=== PATIENT | male | born 1945 | race Caucasian/White ===

== ENCOUNTER → 2017-01-31 | Outpatient (CLI) | payer MEDICARE, OTHER ==
[~2017-01-31] MED LIST: ALPR0.254 PO; ASCO10007 PO; ASPI81TA50 PO; ATOR20TA9 PO; B12 INJ; BIFI4CAP PO; CHOL20003 PO; CLOP75TA22 PO; GLIM1TAB PO; GLYB5TAB3 PO; IRON1TAB62 PO; LACT1CAP24 PO; LOSA25TA2 PO; MAGN400T26 PO; MAGN500T PO; MAGN84TA6 PO; METF10002 PO; METF500T PO; METH500T5 PO; METO25TA35 PO; MULT-717 PO; OMEG-14 PO; OMEP-110 PO; POTA10TA5 PO; RABE20TA5 PO; SITA100T PO; TAMS0.4C2 PO; TELM1TAB3 PO; TICA90TA PO; VIT1CAPS9 PO; VITA400C42 PO
== END | disposition home or self-care (01) ==
LOC: RAD 12:30
PROVIDERS: ATTEND Nurse Practitioner Family
DX: K57.30 Diverticulosis of large intestine without perforation or abscess without bleeding (principal); R19.4 Change in bowel habit
CPT/HCPCS: 74177

== ENCOUNTER → 2017-07-15 | Outpatient (CLI) | payer MEDICARE, OTHER ==
[~2017-07-15] MED LIST changes: +ASCO100019 PO; -ASCO10007 PO; +CHOL2000 PO; -CHOL20003 PO; -CLOP75TA22 PO; +CLOP75TA52 PO; +RABE20TA18 PO; -RABE20TA5 PO
== END | disposition home or self-care (01) ==
LOC: LAB 14:56
PROVIDERS: ATTEND Nurse Practitioner Primary Care
DX: Z00.01 Encounter for general adult medical examination with abnormal findings (principal); R06.02 Shortness of breath; R06.09 Other forms of dyspnea; R97.20 Elevated prostate specific antigen [PSA]; E55.9 Vitamin D deficiency, unspecified; E78.2 Mixed hyperlipidemia; E11.65 Type 2 diabetes mellitus with hyperglycemia; I10 Essential (primary) hypertension; K21.9 Gastro-esophageal reflux disease without esophagitis; K92.2 Gastrointestinal hemorrhage, unspecified; R53.83 Other fatigue; D64.9 Anemia, unspecified; E61.1 Iron deficiency; R51 Headache; Z79.899 Other long term (current) drug therapy
CPT/HCPCS: 36415; 71020; 83880

== ENCOUNTER → 2017-07-25 | Outpatient (CLI) | payer MEDICARE, OTHER | END | disposition home or self-care (01) | LOC: CFH 11:59 | PROVIDERS: ATTEND Nurse Practitioner Primary Care | DX: I08.0 Rheumatic disorders of both mitral and aortic valves (principal); E78.5 Hyperlipidemia, unspecified; I25.10 Atherosclerotic heart disease of native coronary artery without angina pectoris; E11.65 Type 2 diabetes mellitus with hyperglycemia; E78.2 Mixed hyperlipidemia; I10 Essential (primary) hypertension; K21.9 Gastro-esophageal reflux disease without esophagitis; Z85.46 Personal history of malignant neoplasm of prostate; Z95.5 Presence of coronary angioplasty implant and graft | CPT/HCPCS: 70450; 93306 ==

== ENCOUNTER → 2017-08-08 | Outpatient (CLI) | payer MEDICARE, OTHER | END | disposition home or self-care (01) | LOC: CFH 09:30 | PROVIDERS: ATTEND Nurse Practitioner Primary Care | DX: I71.4 Abdominal aortic aneurysm, without rupture (principal); R93.1 Abnormal findings on diagnostic imaging of heart and coronary circulation; I77.810 Thoracic aortic ectasia | CPT/HCPCS: 82565; 93978 ==

== ENCOUNTER 2017-08-12 22:24 | Inpatient (IN) | payer MEDICARE, OTHER ==
[~2017-08-12] VITALS: Ht 172.7 cm; Wt 104.8 kg
[2017-08-12] MEDS ORDERED: SODIUM CHLORIDE FLUSH 10ML SYR IVF ONE (23:00)
[2017-08-12 23:21] LABS: HEMATOCRIT 42.7 % (39.2-51.8); HEMOGLOBIN 14.3 g/dL (13.7-18.0); WHITE BLOOD COUNT 11.6 x10^3/uL (3.4-10)
[2017-08-12 23:33] LABS: ASPARTATE AMINO TRANSFERASE 19 U/L (15-37); BLOOD UREA NITROGEN 16 mg/dL (7-18)
[2017-08-13] MEDS ORDERED: hydrALAzine 20 MG/ML, 1ML IVPush PRN (00:30)
[2017-08-13] MEDS ORDERED: ONDANSETRON 2MG/ML, 2ML IV PRN (00:30)
[2017-08-13] MEDS ORDERED: LORazepam 1MG TABLET PO PRN (00:30)
[2017-08-13] MEDS ORDERED: morphine SULFATE 10 MG/ML, 1ML IVPush PRN (00:30)
[2017-08-13 02:16] VITALS: BP 160/82
[2017-08-13] MEDS: SODIUM CHLORIDE 0.9% 1,000 ML IV SCH ×3 (02:17→22:09)
[2017-08-13 02:24] VITALS: BP 160/82
[2017-08-13] MEDS: INSULIN ASPART 100 UNITS/ML, PEN SQ-INSULIN SCH ×5 (02:49→21:00)
[2017-08-13 06:06] LABS: HEMOGLOBIN 14.1 g/dL (13.7-18.0); WHITE BLOOD COUNT 12.7 x10^3/uL (3.4-10)
[2017-08-13 06:54] LABS: BLOOD UREA NITROGEN 14 mg/dL (7-18)
[2017-08-13] MEDS: PANTOPRAZOLE 40 MG IV IVPush SCH (07:30)
[2017-08-13 08:43] VITALS: BP 164/79
[2017-08-13 12:44] VITALS: BP 161/76
[2017-08-13 17:45] LABS: HEMATOCRIT 40.9 % (39.2-51.8); HEMOGLOBIN 13.7 g/dL (13.7-18.0)
[2017-08-13 20:00] VITALS: BP 164/84
[2017-08-13] MEDS ORDERED: MOVIPREP POWDER 1 PREP KIT PO ONE (20:00)
[2017-08-13 23:34] LABS: HEMATOCRIT 43.4 % (39.2-51.8); HEMOGLOBIN 14.3 g/dL (13.7-18.0)
[2017-08-14 01:41] VITALS: BP 148/83
[2017-08-14] MEDS ORDERED: MOVIPREP POWDER 1 PREP KIT PO ONE (04:00)
[2017-08-14 06:10] LABS: HEMATOCRIT 40.8 % (39.2-51.8); HEMOGLOBIN 13.6 g/dL (13.7-18.0)
[2017-08-14] MEDS: INSULIN ASPART 100 UNITS/ML, PEN SQ-INSULIN SCH ×4 (07:00→21:00)
[2017-08-14] MEDS: PANTOPRAZOLE 40 MG IV IVPush SCH (07:30)
[2017-08-14 07:34] VITALS: BP 175/100
[2017-08-14] MEDS: SODIUM CHLORIDE 0.9% 1,000 ML IV SCH ×3 (07:52→22:05)
[2017-08-14] MEDS ORDERED: FENTANYL PF 100 MCG/2ML ONE (08:18)
[2017-08-14] MEDS ORDERED: PROPOFOL 10 MG/ML, 20ML ONE (08:26)
[2017-08-14] MEDS ORDERED: FENTANYL PF 100 MCG/2ML IV PRN (08:30)
[2017-08-14] MEDS ORDERED: METOPROLOL 1 MG/ML, 5ML IV PRN (08:30)
[2017-08-14] MEDS ORDERED: LABETALOL 5MG/ML, 20ML IV PRN (08:30)
[2017-08-14] MEDS ORDERED: METOCLOPRAMIDE 5 MG/ML, 2ML IV PRN (08:30)
[2017-08-14] MEDS ORDERED: ACETAMINOPHEN 325 MG TABLET PO PRN (08:30)
[2017-08-14] MEDS ORDERED: ONDANSETRON 2MG/ML, 2ML IVPush PRN (08:30)
[2017-08-14] MEDS ORDERED: hydrALAzine 20 MG/ML, 1ML IV PRN (08:30)
[2017-08-14] MEDS ORDERED: HYDROcodone/APAP 7.5-325MG/15ML UDC PO PRN (08:30)
[2017-08-14] MEDS ORDERED: ALBUTEROL SULFATE 2.5 MG/3 ML NPPB PRN (08:30)
[2017-08-14] MEDS ORDERED: HYDROmorphone 1 MG/ML, 1ML IV PRN (08:30)
[2017-08-14] MEDS ORDERED: OXYcodone 5 MG/5 ML ORAL.SOL UDC PO PRN (08:30)
[2017-08-14] MEDS ORDERED: EPHEDRINE 50 MG/ML, 1ML IVPush PRN (08:30)
[2017-08-14 12:07] LABS: HEMATOCRIT 37.9 % (39.2-51.8); HEMOGLOBIN 12.4 g/dL (13.7-18.0)
[2017-08-14 13:35] VITALS: BP 187/78
[2017-08-14] MEDS: METOPROLOL TARTRATE 25 MG TABLET PO SCH ×2 (13:51→22:03)
[2017-08-14] MEDS: CHOLECALCIFEROL 1,000 UNIT TABLET PO SCH (13:52)
[2017-08-14] MEDS: LOSARTAN 25MG TABLET PO SCH (13:52)
[2017-08-14 15:28] VITALS: BP 177/92
[2017-08-14 17:17] LABS: HEMATOCRIT 38.2 % (39.2-51.8); HEMOGLOBIN 12.6 g/dL (13.7-18.0)
[2017-08-14 19:53] VITALS: BP 160/89
[2017-08-14] MEDS: ATORVASTATIN 20 MG TABLET PO SCH (22:03)
[2017-08-14] MEDS: TAMSULOSIN 0.4 MG CAP.ER.24H PO SCH (22:03)
[2017-08-14 23:06] LABS: HEMATOCRIT 34.6 % (39.2-51.8); HEMOGLOBIN 11.5 g/dL (13.7-18.0)
[2017-08-15 04:00] VITALS: BP 131/77
[2017-08-15 05:47] LABS: HEMATOCRIT 31.2 % (39.2-51.8); HEMOGLOBIN 10.5 g/dL (13.7-18.0); WHITE BLOOD COUNT 7.9 x10^3/uL (3.4-10)
[2017-08-15 05:52] LABS: BLOOD UREA NITROGEN 8 mg/dL (7-18)
[2017-08-15 08:00] VITALS: BP 154/78
[2017-08-15] MEDS: PANTOPRAZOLE 40 MG IV IVPush SCH ×2 (09:01→09:14)
[2017-08-15] MEDS: INSULIN ASPART 100 UNITS/ML, PEN SQ-INSULIN SCH ×4 (09:02→21:04)
[2017-08-15] MEDS: SODIUM CHLORIDE 0.9% 1,000 ML IV SCH (09:10)
[2017-08-15] MEDS: METOPROLOL TARTRATE 25 MG TABLET PO SCH ×2 (09:14→21:04)
[2017-08-15] MEDS: CHOLECALCIFEROL 1,000 UNIT TABLET PO SCH (09:14)
[2017-08-15] MEDS: LOSARTAN 25MG TABLET PO SCH (09:15)
[2017-08-15 14:12] VITALS: BP 133/68
[2017-08-15 15:02] LABS: HEMATOCRIT 31.5 % (39.2-51.8); HEMOGLOBIN 10.5 g/dL (13.7-18.0)
[2017-08-15 19:28] VITALS: BP 144/74
[2017-08-15] MEDS: ATORVASTATIN 20 MG TABLET PO SCH (21:04)
[2017-08-15] MEDS: TAMSULOSIN 0.4 MG CAP.ER.24H PO SCH (21:04)
[2017-08-15 23:33] LABS: HEMOGLOBIN 10.4 g/dL (13.7-18.0)
[2017-08-16 00:51] VITALS: BP 132/73
[2017-08-16 07:22] LABS: HEMATOCRIT 31.5 % (39.2-51.8); HEMOGLOBIN 10.7 g/dL (13.7-18.0)
[2017-08-16 08:00] VITALS: BP 143/71
[2017-08-16] MEDS: INSULIN ASPART 100 UNITS/ML, PEN SQ-INSULIN SCH ×2 (08:58→12:39)
[2017-08-16] MEDS: TAMSULOSIN 0.4 MG CAP.ER.24H PO SCH (08:59)
[2017-08-16] MEDS: LOSARTAN 25MG TABLET PO SCH (08:59)
[2017-08-16] MEDS: CHOLECALCIFEROL 1,000 UNIT TABLET PO SCH (08:59)
[2017-08-16] MEDS: METOPROLOL TARTRATE 25 MG TABLET PO SCH (08:59)
== END 2017-08-16 15:30 | disposition home or self-care (01) | DRG 378 ==
LOC: ED 08-13 00:12 → EDIP 08-13 00:17 → 4EST 08-13 01:27
PROVIDERS: ADMIT Internal Medicine; ATTEND Internal Medicine
PROC: 0DCM8ZZ Extirpation of Matter from Descending Colon, Via Natural or Artificial Opening Endoscopic (ICD-10-PCS; 2017-08-14)
PROC: 0DCN8ZZ Extirpation of Matter from Sigmoid Colon, Via Natural or Artificial Opening Endoscopic (ICD-10-PCS; principal; 2017-08-14 08:00)
DX: K57.31 Diverticulosis of large intestine without perforation or abscess with bleeding (principal); E87.1 Hypo-osmolality and hyponatremia; E88.81 Metabolic syndrome and other insulin resistance; C61 Malignant neoplasm of prostate; D64.9 Anemia, unspecified; I10 Essential (primary) hypertension; D12.2 Benign neoplasm of ascending colon; D12.5 Benign neoplasm of sigmoid colon; N40.0 Benign prostatic hyperplasia without lower urinary tract symptoms; E11.9 Type 2 diabetes mellitus without complications; E66.9 Obesity, unspecified; E78.00 Pure hypercholesterolemia, unspecified; I25.10 Atherosclerotic heart disease of native coronary artery without angina pectoris; I77.810 Thoracic aortic ectasia; Z82.49 Family history of ischemic heart disease and other diseases of the circulatory system; Z83.3 Family history of diabetes mellitus; Z91.041 Radiographic dye allergy status; Z95.5 Presence of coronary angioplasty implant and graft; Z68.35 Body mass index [BMI] 35.0-35.9, adult
CPT/HCPCS: 36415; 80048; 80053; 82962; 83735; 85014; 85018; 85025; 85610; 85730; 86850; 86900; 93005; 99285; J1815; J2704; J3010; C9113; J7030

== ENCOUNTER → 2017-10-08 | Outpatient (CLI) | payer MEDICARE, OTHER ==
[~2017-10-08] MED LIST changes: +REGADENOSON 0.4 MG/5 ML SYRINGE ONE
== END | disposition home or self-care (01) ==
LOC: CFH 08:37
PROVIDERS: ATTEND Internal Medicine Cardiovascular Disease
DX: R94.31 Abnormal electrocardiogram [ECG] [EKG] (principal); E11.9 Type 2 diabetes mellitus without complications; I10 Essential (primary) hypertension; E78.5 Hyperlipidemia, unspecified
CPT/HCPCS: 78452; 93017; A9502; J2785

== ENCOUNTER → 2018-02-05 | Outpatient (CLI) | payer MEDICARE, OTHER ==
[~2018-02-05] MED LIST changes: -REGADENOSON 0.4 MG/5 ML SYRINGE ONE
[2018-02-05 12:16] LABS: ALBUMIN 3.5 g/dL (3.4-5.0); ANION GAP 9 mmol/L (5-15); CHLORIDE 98 mmol/L (98-107)
[2018-02-05 12:21] LABS: ALANINE AMINOTRANSFERASE 66 U/L (12-78); ALKALINE PHOSPHATASE 67 U/L (45-117); CREATININE 0.91 mg/dL (0.7-1.3); TOTAL PROTEIN 7.4 g/dL (6.4-8.2)
== END | disposition home or self-care (01) ==
LOC: LAB 09:11
PROVIDERS: ATTEND Podiatrist Foot & Ankle Surgery
DX: M1A.9XX0 Chronic gout, unspecified, without tophus (tophi) (principal)
CPT/HCPCS: 36415; 80053; 84550

== ENCOUNTER → 2018-03-09 | Outpatient (CLI) | payer MEDICARE, OTHER | END | disposition home or self-care (01) | LOC: CFH 10:11 | PROVIDERS: ATTEND Urology | DX: R97.20 Elevated prostate specific antigen [PSA] (principal) | CPT/HCPCS: 36415; 84153 ==

== ENCOUNTER 2019-09-06 11:01 | Observation (INO) | payer MEDICARE, OTHER ==
[~2019-09-06] VITALS: Ht 172.7 cm; Wt 97.5 kg
[~2019-09-06 11:01] MED LIST changes: +ATOR20TA37 PO; -ATOR20TA9 PO; +OCUVITE SOFTGE1 EACH PO; +POLY17PO5 PO; +RABE20TA26 PO; +TELM80TA8 PO
[2019-09-06] MEDS ORDERED: DULA1.5P INJ (11:47)
[2019-09-06] MEDS ORDERED: AMLO-150 PO (11:50)
[2019-09-06 11:55] VITALS: BP 151/84
[2019-09-06] MEDS ORDERED: DIPHENHYDRAMINE 50 MG/ML, 1ML IVPush ONE (12:00)
[2019-09-06] MEDS ORDERED: methylPREDNISolone SOD SUCC 125 MG/2 ML IVPush ONE (12:00)
[2019-09-06] MEDS ORDERED: FENTANYL PF 100 MCG/2ML ONE (12:04)
[2019-09-06] MEDS ORDERED: VERAPAMIL 2.5 MG/ML, 2ML ONE (12:04)
[2019-09-06] MEDS ORDERED: MIDAZOLAM 1 MG/ML, 5ML ONE (12:04)
[2019-09-06] MEDS ORDERED: NITROGLYCERIN 5 MG/ML, 10ML ONE (12:04)
[2019-09-06] MEDS ORDERED: methylPREDNISolone SOD SUCC 125 MG/2 ML ONE (12:04)
[2019-09-06] MEDS ORDERED: DIPHENHYDRAMINE 50 MG/ML, 1ML ONE (12:04)
[2019-09-06] MEDS ORDERED: LIDOCAINE 1%, 20ML ONE (12:04)
[2019-09-06] MEDS ORDERED: HEPARIN 1,000 UNITS/ML, 10ML ONE (12:05)
[2019-09-06] MEDS ORDERED: BIVALIRUDIN 250 MG ONE (13:02)
[2019-09-06] MEDS ORDERED: CLOPIDOGREL 300 MG TABLET ONE (13:02)
[2019-09-06] MEDS ORDERED: ONDANSETRON 2MG/ML, 2ML IVPush PRN (14:00)
[2019-09-06] MEDS ORDERED: ZOLPIDEM 5MG TABLET PO PRN (14:00)
[2019-09-06] MEDS ORDERED: ACETAMINOPHEN 325 MG TABLET PO PRN (14:00)
[2019-09-06] MEDS: SODIUM CHLORIDE 0.9% 1,000 ML IV SCH ×2 (16:30→21:42)
[2019-09-06] MEDS: INSULIN REGULAR 100 UNITS/ML, 3ML VIAL SQ-INSULIN SCH ×2 (19:13→21:21)
[2019-09-06 19:26] VITALS: BP 154/81
[2019-09-06] MEDS ORDERED: ATORVASTATIN 20 MG TABLET PO SCH (21:00)
[2019-09-06] MEDS: METOPROLOL TARTRATE 25 MG TABLET PO SCH (21:14)
[2019-09-06] MEDS: MAGNESIUM OXIDE 400 MG TABLET PO SCH (21:14)
[2019-09-07 04:00] VITALS: BP 143/76
[2019-09-07 04:42] LABS: ANION GAP 8 mmol/L (5-15); CALCIUM 8.7 mg/dL (8.5-10.1); CHLORIDE 103 mmol/L (98-107); CREATININE 0.77 mg/dL (0.7-1.3)
[2019-09-07] MEDS: SODIUM CHLORIDE 0.9% 1,000 ML IV SCH (05:29)
[2019-09-07 07:51] VITALS: BP 152/77
[2019-09-07] MEDS: INSULIN REGULAR 100 UNITS/ML, 3ML VIAL SQ-INSULIN SCH (08:02)
[2019-09-07] MEDS: MAGNESIUM OXIDE 400 MG TABLET PO SCH (08:06)
[2019-09-07] MEDS: METOPROLOL TARTRATE 25 MG TABLET PO SCH (08:06)
[2019-09-07] MEDS: AMLODIPINE 5 MG TABLET PO SCH ×4 (08:06→08:13)
[2019-09-07] MEDS ORDERED: PANTOPROZOLE 40MG TABLET PO SCH (09:00)
[2019-09-07] MEDS ORDERED: LOSARTAN 50MG TABLET PO SCH (09:00)
[2019-09-07] MEDS ORDERED: ASPIRIN 81 MG TABLET EC PO SCH ×2 (09:00)
[2019-09-07] MEDS ORDERED: CLOPIDOGREL 75 MG TABLET PO SCH (09:00)
[2019-09-07] MEDS ORDERED: POLYETHYLENE GLYCOL 17 GM PACKET PO SCH (09:00)
[2019-09-07] MEDS ORDERED: TAMSULOSIN 0.4 MG CAP.ER.24H PO SCH (09:00)
[2019-09-07] MEDS ORDERED: CLOP75TA PO (09:16)
[2019-09-12] MEDS ORDERED: TEMPLATE NON-FORMULARY MED. (Dulaglutide (Trulicity) 1.5 MG) SC SCH (09:00)
== END 2019-09-07 11:37 | disposition home or self-care (01) ==
LOC: CACL 11:01 → 5SO 13:51 → INTOOBSV 23:32 → CACL 23:32 → DCLOUNGE 09-07 11:27
PROVIDERS: ADMIT Internal Medicine Cardiovascular Disease; ATTEND Internal Medicine Cardiovascular Disease
DX: I25.119 Atherosclerotic heart disease of native coronary artery with unspecified angina pectoris (principal); E78.5 Hyperlipidemia, unspecified; I10 Essential (primary) hypertension; E11.9 Type 2 diabetes mellitus without complications; Z79.82 Long term (current) use of aspirin
CPT/HCPCS: 36415; 80048; 82962; 85014; 85018; 93458; 96372; 96374; 96375; 99156; 99157; C1725; C1769; C1874; C1887; C1894; C9600; G0378; J0583; J1200; J1644; J1815; J2250; J2930; J3010; J3490; Q9967

== ENCOUNTER 2020-11-21 08:09 | Day surgery (SDC) | payer MEDICARE, OTHER ==
[~2020-11-21 08:09] MED LIST changes: +AMLO-150 PO; +CLOP75TA PO; +DULA1.5P INJ; +VITA-74 PO; -VITA400C42 PO
[2020-11-21] MEDS ORDERED: LIDOCAINE 1%, 20ML ONE (08:26)
[2020-11-21] MEDS ORDERED: LIDOCAINE 2%, 20ML SQ PRN (08:30)
[2020-11-21] MEDS ORDERED: PLEASE ENTER HEIGHT AND WEIGHT MC SCH (09:30)
== END 2020-11-21 11:48 | disposition home or self-care (01) ==
LOC: CACL 08:09
PROVIDERS: ATTEND Internal Medicine Cardiovascular Disease
DX: R00.2 Palpitations (principal); I63.9 Cerebral infarction, unspecified; I10 Essential (primary) hypertension; I25.10 Atherosclerotic heart disease of native coronary artery without angina pectoris; E11.9 Type 2 diabetes mellitus without complications; E78.2 Mixed hyperlipidemia; Z79.02 Long term (current) use of antithrombotics/antiplatelets; Z79.82 Long term (current) use of aspirin; Z79.84 Long term (current) use of oral hypoglycemic drugs; Z79.899 Other long term (current) drug therapy; Z86.73 Personal history of transient ischemic attack (TIA), and cerebral infarction without residual deficits; Z91.041 Radiographic dye allergy status; Z95.5 Presence of coronary angioplasty implant and graft
CPT/HCPCS: 33285; C1764